=== PATIENT | female | born 1990 | race Caucasian/White ===

== ENCOUNTER 2017-10-21 23:54 | Emergency (ER) | payer OTHER ==
[~2017-10-21] VITALS: Ht 160 cm; Wt 74.4 kg
[2017-10-22 01:18] VITALS: BP 121/80
== END 2017-10-22 01:18 | disposition home or self-care (01) ==
LOC: ED 23:54
DX: R10.9 Unspecified abdominal pain (principal); R11.10 Vomiting, unspecified; R19.7 Diarrhea, unspecified
CPT/HCPCS: Q0162

== ENCOUNTER 2017-12-24 14:01 | Emergency (ER) | payer OTHER ==
[~2017-12-24] VITALS: Ht 157.5 cm; Wt 75.7 kg
[2017-12-24 14:12] VITALS: BP 117/73; Ht 157.5 cm; Wt 75.7 kg
== END 2017-12-24 15:59 | disposition home or self-care (01) ==
LOC: ED 14:01
DX: T63.481A Toxic effect of venom of other arthropod, accidental (unintentional), initial encounter (principal); Y92.89 Other specified places as the place of occurrence of the external cause